=== PATIENT | female | born 1985 | race African-American/Black ===

== ENCOUNTER 2017-03-13 20:33 | Emergency (ER) | payer OTHER ==
[2017-03-13 20:52] VITALS: BP 127/69; PULSE 64; TEMP 97; BMI 26.4
[2017-03-13] MEDS ORDERED: SODIUM CHLORIDE 0.9% 500 ML INFUS.BAG IV ONE (21:24)
[2017-03-13] MEDS ORDERED: METOCLOPRAMIDE HCL INJECTION 10 MG/2 ML VIAL IVPB ONE (21:26)
[2017-03-13] MEDS ORDERED: FAMOTIDINE 20 MG/50 ML IVPB 50 ML IVPB ONE ×2 (21:27→22:20)
--- NOTE | 2017-03-13 21:42 | PDOC ---
History of Present Illness - General Chief Complaint: Vomiting Blood Stated Complaint: VOMITING BLOOD,HEADACHE Time Seen by Provider: 03/13/17 20:40 History Source: Patient Exam Limitations: No Limitations - History of Present Illness Initial Comments: 03/13/17 21:20 This is a 31 yo female with h/o asthma who presents with nausea and vomiting since yesterday morning, and 15 episodes of vomiting with occasional specs of blood today. She was seen at [facility] ED yesterday and received an IM dose of antiemetic (she cannot recall what kind) with partial relief. She was additionally prescribed Zofran ODT from this visit, which has not helped. The patient recalls having received a prescription for Tylenol/codeine from her dentist a few days ago for a toothache. She took only one dose of this medication, just prior to the onset of nausea. She was additionally prescribed an antibiotic for a dental infection, but she has not started taking this medication d/t the nausea. She denies any possibility that she might be . She notes a history of daily marijuana use, but cut back to once every couple of days two weeks ago. She additionally notes a 9/10 throbbing headache from her forehead to the back of her neck, worse on the left side, which started last night and was worse when she awoke this morning. She reports light sensitivity, but not noise sensitivity. She denies any measured fever, vision changes, numbness, tingling, weakness, cough, runny nose, chest pain, new shortness of breath (pt has asthma unchanged from baseline), rash, or other new symptoms. 03/14/17 00:14 Past History - Past Medical History Allergies/Adverse Reactions: Allergies Allergy/AdvReac Type Severity Reaction Status Date / Time amoxicillin Allergy Verified 03/13/17 20:48 iodine Allergy Verified 03/13/17 20:48 Penicillins Allergy Verified 03/13/17 20:47 - Psycho/Social/Smoking Cessation Hx Suicidal Ideation: No Smoking History: Never smoked Have you smoked in the past 12 months: No Information on smoking cessation initiated: No Hx Alcohol Use: No Drug/Substance Use Hx: No *Physical Exam - Vital Signs Last Vital Signs Temp Pulse Resp BP Pulse Ox 97.0 F L 64 18 127/69 100 03/13/17 20:49 03/13/17 20:49 03/13/17 20:49 03/13/17 20:49 03/13/17 20:49 ED Treatment Course - LABORATORY CBC & Chemistry Diagram: 03/13/17 22:00 03/13/17 22:00 Medical Decision Making - Medical Decision Making 03/13/17 21:42 31 yo female p/w nausea, vomiting, and headache. Examination is within normal limits, normal neurologic exam as well. Most likely this is an abdominal migraine. Less likely but also considered on the ddx are pseudotumor cerebri, cannabis hyperemesis syndrome, . bHCG is ordered, as is UA, tox screen , and PT/INR in case lumbar puncture is deemed necessary. 03/14/17 00:16 Patient's UA is negative, PT/INR are wnl, bHCG is negative. Tox screen positive for opiates, but she took Tylenol/codeine recently. Her symptoms are well- controlled with Tylenol, famotidine, and Reglan. She also is given IVF all with significant symptomatic improvement. 03/14/17 00:29 Pseudotumor cerebri is unlikely given the patient's lack of vision changes (no double-vision, no visual field defects). The patient fits the physical profile for this diagnosis, but she is not on control. It is also unlikely that this is cannabis hyperemesis because the patient has actually cut back on marijuana use recently. Most likely this is abdominal migraine. Patient will be diagnosed with vomiting and headache, and will follow up with her PCP for any further workup. *DC/Admit/Observation/Transfer Diagnosis at time of Disposition: Headache Qualifiers: Headache type: unspecified Headache chronicity pattern: acute headache Intractability: not intractable Qualified Code(s): R51 - Headache Vomiting Qualifiers: Vomiting type: unspecified Vomiting Intractability: non-intractable Nausea presence: with nausea Qualified Code(s): R11.2 - Nausea with vomiting, unspecified - Discharge Dispostion Disposition: HOME Condition at time of disposition: Stable Admit: No - Patient Instructions Printed Discharge Instructions: DI for Headache, DI for Vomiting -- Adult Additional Instructions: Please take your Zofran ODT as prescribed (let dissolve completely under the tongue). Drink plenty of fluids and follow up with both your PCP and dentist. - Attestations Physician Attestion: 03/14/17 00:42 I, Dr. Monisha Navarro, attest that this document has been prepared under my direction and personally reviewed by me in its entirety. I further attest, that it accurately reflects all work, treatment, procedures and medical decision -making performed by me.
[2017-03-13] MEDS ORDERED: ACETAMINOPHEN 1000 MG/100 ML VIAL (NON FORMULARY) IVPB ONE (22:06)
[2017-03-13] MEDS ORDERED: METOCLOPRAMIDE HCL INJECTION 10 MG/2 ML VIAL ONE (22:07)
[2017-03-13] MEDS ORDERED: ACETAMINOPHEN INJECTION 100 ML IVPB ONE (22:07)
[2017-03-13 22:10] LABS: BASOPHIL 1.2 % (0-2.0); EOSINOPHIL 9.5 % (0-4.5); MCH 25.7 pg (25.7-33.7); MCHC 32.8 g/dl (32.0-36.0); MEAN CELL VOLUME 78.5 fl (80-96); MEAN PLT VOLUME 8.8 fl (7.5-11.1); NEUTROPHILS 44.7 % (42.8-82.8); PLATELET COUNT 308 K/MM3 (134-434); RDW 14.3 % (11.6-15.6); WHITE BLOOD COUNT 10.9 K/mm3 (4.0-10.0)
[2017-03-13 22:35] LABS: ALBUMIN 3.7 g/dl (3.4-5.0); AMYLASE 57 U/L (25-115); ANION GAP 5 (8-16); BILIRUBIN,TOTAL 0.3 mg/dL (0.2-1.0); CALCIUM 9.2 mg/dL (8.5-10.1); CO2 29 mmol/L (21-32); CREATININE 0.9 mg/dL (0.55-1.02); GLUCOSE,RANDOM 84 mg/dL (74-106); SGOT/AST 44 U/L (15-37); SGPT/ALT 40 U/L (12-78); TOT PROT 6.2 g/dl (6.4-8.2)
[2017-03-13 22:36] LABS: ALK PHOS 85 U/L (45-117)
--- NOTE | 2017-03-13 23:31 | PDOC ---
Attending Attestation - Resident Resident Name: Monisha Navarro - HPI HPI: 03/13/17 23:28 Pt comes with vomiting ever since she had a T#3 for her tooth. She has abd pain. Hx of asthma; also hx of depression and cracked tooth that is scheduled for extraction in a couple of weeks. - Physicial Exam PE: 03/13/17 23:29 Afebrile; no dental swelling or voice change or pharyngeal swelling. Abd soft NT ND No vomiting in the ER. Labs are normal so far. - Medical Decision Making 03/13/17 23:30 UA still pending. We are awaiting urine ketones, to assess whether patient needs a 2nd L of NSS. 03/14/17 00:55 UA normal and she is feeling better and she is ready for discharge.
[2017-03-13 23:45] LABS: INR 1.13 (0.82-1.09); PROTHROMBIN TIME (PATIENT) 12.5 SEC (9.98-11.88)
[2017-03-13] MEDS ORDERED: SODIUM CHLORIDE 0.45% 500 ML IV SCH (23:45)
[2017-03-13 23:51] LABS: URINE APPEARANCE CLEAR; URINE BILIRUBIN NEGATIVE (NEGATIVE); URINE BLOOD NEGATIVE (NEGATIVE); URINE COLOR LTYELLOW; URINE GLUCOSE (UA) NEGATIVE (NEGATIVE); URINE KETONE NEGATIVE (NEGATIVE); URINE LEUK ESTERASE NEGATIVE (NEGATIVE); URINE NITRITE NEGATIVE (NEGATIVE); URINE PROTEIN NEGATIVE (NEGATIVE); URINE UROBILINOGEN NEGATIVE E.U./dl (0.2-1.0)
[2017-03-14 00:37] LABS: URINE MARIJUANA THC NEGATIVE ng/ml (CUTOFF=50)
== END 2017-03-14 01:03 | disposition home or self-care (01) ==
LOC: EDBD 20:33 → JER 20:33
PROC: 3E033GC Introduction of Other Therapeutic Substance into Peripheral Vein, Percutaneous Approach (ICD-10-PCS; principal; 2017-03-13)
PROC: 3E033NZ Introduction of Analgesics, Hypnotics, Sedatives into Peripheral Vein, Percutaneous Approach (ICD-10-PCS; 2017-03-13)
PROC: 3E033GC Introduction of Other Therapeutic Substance into Peripheral Vein, Percutaneous Approach (ICD-10-PCS; 2017-03-13)
DX: R51 Headache (principal)
CPT/HCPCS: 36415; 80053; 80307; 81003; 82150; 83690; 84702; 85025; 85610; 85730; 96365; 96375; 99282-25